=== PATIENT | female | born 1945 | race Caucasian/White ===

== ENCOUNTER 2021-09-26 11:15 | Observation (INO) ==
[~2021-09-26 11:15] MED LIST: Buffered Lidocaine 1% SYRIN 1 ml INTRADERM ONE; Famotidine IV 10 MG/ML 2 ml VIAL (20 mg) IV ONE; Lactated Ringers 1000 ml BAG 1,000 ML IV SCH
[2021-09-26] MEDS ORDERED: ROPIVACAINE 5 MG/ML 30 ML BTL (0.5%) ONE (11:50)
[2021-09-26] MEDS ORDERED: ceFAZolin 2 GM in NS PREMIX 2 GM/100 ML BAG IVPB ONE (12:49)
[2021-09-26] MEDS ORDERED: Midazolam 2 mg/2 ml VIAL 1 mg/ml 2 ml VIAL (2 mg) ONE (13:07)
[2021-09-26] MEDS ORDERED: Lidocaine 2% PF 5 ML VIAL ONE (13:07)
[2021-09-26] MEDS ORDERED: Ondansetron 4 mg VIAL 2 MG/ML 2 ml VIAL ONE (13:07)
[2021-09-26] MEDS ORDERED: Propofol 10 MG/ML 20 ML BTL ONE ×2 (13:07→15:40)
[2021-09-26] MEDS ORDERED: Dexamethasone IV 4 MG/ML VIAL 1 ml VIAL ONE (13:07)
[2021-09-26] MEDS ORDERED: fentaNYL 100 mcg/2 ml 50 MCG/ML VIAL ONE ×2 (13:07→18:37)
[2021-09-26] MEDS ORDERED: Famotidine IV 10 MG/ML 2 ml VIAL (20 mg) ONE (13:17)
[2021-09-26] MEDS ORDERED: Lactulose 30 ml UDC PO PRN (15:19)
[2021-09-26] MEDS ORDERED: Magnesium Hydroxide LIQ 30 ML UDC PO PRN (15:19)
[2021-09-26] MEDS ORDERED: Morphine 2 MG/ML SYRINGE IV PRN (15:19)
[2021-09-26] MEDS ORDERED: Ondansetron 4 mg VIAL 2 MG/ML 2 ml VIAL IV PRN ×2 (15:19→15:53)
[2021-09-26] MEDS ORDERED: Ondansetron ODT 4 mg TAB 4 MG TAB PO PRN (15:19)
[2021-09-26] MEDS ORDERED: Naloxone 0.4 mg VIAL 0.4 mg/ml 1 ml VIAL IV PRN (15:53)
[2021-09-26] MEDS ORDERED: Lactated Ringers 1000 ml BAG 1,000 ML IV SCH (16:00)
[2021-09-26] MEDS ORDERED: ceFAZolin 1 GM ADVAN 1 GM in NS 0.9% 50 ML 50 ML IVPB SCH (16:00)
[2021-09-26] MEDS ORDERED: Phenylephrine IV 10 MG/ML 1 ml VIAL ONE (16:59)
[2021-09-26] MEDS: fentaNYL 100 mcg/2 ml 50 MCG/ML VIAL IV PRN ×4 (18:38→19:27)
[2021-09-26] MEDS: ceFAZolin 1 GM ADVAN 1 GM in NS 0.9% 50 ML 50 ML IVPB SCH (22:39)
[2021-09-26] MEDS: Magnesium Hydroxide LIQ 30 ML UDC PO SCH (22:39)
[2021-09-27 06:20] LABS: Hematocrit 33 % (35-47); Mean Platelet Volume 8.9 fL (7.4-10.4); Platelet Count 163 10^3/uL (150-450)
[2021-09-27] MEDS: ceFAZolin 1 GM ADVAN 1 GM in NS 0.9% 50 ML 50 ML IVPB SCH ×2 (06:24→14:22)
[2021-09-27 06:41] LABS: Calcium 8.7 mg/dL (8.6-10.3); Potassium 4.3 mmol/L (3.5-5.0); eGFR CKD-EPI 91.2 (>60)
[2021-09-27] MEDS ORDERED: Vitamin THERAPEUTIC TAB PO SCH (09:00)
[2021-09-27] MEDS: Magnesium Hydroxide LIQ 30 ML UDC PO SCH (09:20)
[2021-09-27 11:01] VITALS: BP 113/57
== END 2021-09-27 15:30 | disposition home or self-care (01) ==
LOC: AA 11:57 → INTOOBSV 11:57 → SSU 19:52
PROVIDERS: ADMIT Orthopaedic Surgery Adult Reconstructive Orthopaedic Surgery; ATTEND Orthopaedic Surgery Adult Reconstructive Orthopaedic Surgery